=== PATIENT | female | born 1965 | race Caucasian/White ===

== ENCOUNTER 2017-09-13 18:47 | Emergency (ER) | payer SELFPAY ==
[~2017-09-13] VITALS: Ht 147.3 cm; Wt 68.0 kg
[2017-09-13 18:55] VITALS: Ht 147.3 cm; Wt 68.0 kg
[2017-09-13 20:39] VITALS: BP 103/74
== END 2017-09-13 20:39 | disposition home or self-care (01) ==
LOC: ED 18:47
DX: S93.402A Sprain of unspecified ligament of left ankle, initial encounter (principal); M25.552 Pain in left hip; W01.0XXA Fall on same level from slipping, tripping and stumbling without subsequent striking against object, initial encounter; Y93.89 Activity, other specified; Y92.091 Bathroom in other non-institutional residence as the place of occurrence of the external cause; Y99.8 Other external cause status
CPT/HCPCS: Q0092

== ENCOUNTER 2019-03-15 23:04 | Emergency (ER) | payer SELFPAY ==
[~2019-03-15] VITALS: Ht 152.4 cm; Wt 61.2 kg
[2019-03-15 23:10] VITALS: BP 131/65; Ht 152.4 cm; Wt 61.2 kg
== END 2019-03-16 00:35 | disposition left against medical advice (07) ==
LOC: ED 23:04
DX: Z53.21 Procedure and treatment not carried out due to patient leaving prior to being seen by health care provider (principal)